=== PATIENT | female | born 1995 ===

== ENCOUNTER 2022-06-02 11:59 | Emergency (ER) | payer SELFPAY ==
[2022-06-02 12:22] VITALS: BP 117/84; TEMP 98.2
[2022-06-02] MEDS ORDERED: CEPHALEXIN500 M1 PO (12:51)
[2022-06-02 13:08] VITALS: PULSE 70
== END 2022-06-02 13:08 | disposition home or self-care (01) ==
LOC: COL.ER 11:59
DX: T23.201A Burn of second degree of right hand, unspecified site, initial encounter (principal); X10.2XXA Contact with fats and cooking oils, initial encounter; Y92.59 Other trade areas as the place of occurrence of the external cause; Y99.0 Civilian activity done for income or pay